=== PATIENT | male | born 1955 | race Caucasian/White ===

== ENCOUNTER 2023-10-31 11:33 | Emergency (ER) | payer OTHER, MEDICARE ==
[~2023-10-31] VITALS: Ht 177.8 cm; Wt 103.8 kg
[~2023-10-31 11:33] MED LIST: AMLO10TA PO; ASPI-1071 PO; ATOR20TA66 PO; LANTUS SQ; LISI1TAB53 PO
[2023-10-31] MEDS ORDERED: NAPR-56 PO (12:23)
[2023-10-31 12:28] VITALS: BP 169/98; PULSE 75; RESP 17; TEMP 98; O2SAT 96
== END 2023-10-31 12:30 | disposition home or self-care (01) ==
LOC: ER 11:34
DX: S93.691A Other sprain of right foot, initial encounter (principal); I10 Essential (primary) hypertension; E11.9 Type 2 diabetes mellitus without complications; I25.10 Atherosclerotic heart disease of native coronary artery without angina pectoris; Z88.2 Allergy status to sulfonamides; Z79.82 Long term (current) use of aspirin; Z79.899 Other long term (current) drug therapy; Z72.89 Other problems related to lifestyle; W18.39XA Other fall on same level, initial encounter; Y93.89 Activity, other specified; Y92.89 Other specified places as the place of occurrence of the external cause; Y99.8 Other external cause status
CPT/HCPCS: 73630; 99283